=== PATIENT | male | born 1945 | race Caucasian/White ===

== ENCOUNTER 2018-10-19 10:11 | Inpatient (IN) | payer OTHER ==
[~2018-10-19 10:11] MED LIST: HETASTARCH 6% NACL 500 ML BAG; ROCURONIUM 50 MG INJ; ROPIVACAINE 0.2% 20 ML VIAL
[2018-10-19] MEDS ORDERED: ROCURONIUM 50 MG INJ (12:28)
[2018-10-19] MEDS ORDERED: HYDROmorphONE 2 MG/ML SYG (12:28)
[2018-10-19] MEDS ORDERED: CEFAZOLIN 1 GM INJ (12:28)
[2018-10-19] MEDS ORDERED: MIDAZOLAM 1 MG/ML 2 ML INJ (12:28)
[2018-10-19] MEDS ORDERED: ROPIVACAINE 0.5 % 30 ML VIAL (12:28)
[2018-10-19] MEDS ORDERED: PROPOFOL 20 ML (12:28)
[2018-10-19] MEDS ORDERED: LABETALOL HCL 20MG INJ IV (12:30)
[2018-10-19] MEDS ORDERED: ONDANSETRON 4 MG INJ IV ×2 (12:30→13:00)
[2018-10-19] MEDS ORDERED: MEPERIDINE 25 MG INJ IV (12:30)
[2018-10-19] MEDS ORDERED: hydrALAzine 20 MG INJ IV (12:30)
[2018-10-19] MEDS ORDERED: METOCLOPRAMIDE 10 MG INJ IV (12:30)
[2018-10-19] MEDS ORDERED: OXYCODONE/ACETAMINOPHEN (5/325) TAB PO (12:30)
[2018-10-19] MEDS ORDERED: HYDROmorphONE 1 MG/5 ML IV SYRINGE IV ×3 (12:30)
[2018-10-19] MEDS ORDERED: EPHEDrine SULFATE 50 MG/5 ML SYG IV (12:30)
[2018-10-19] MEDS ORDERED: FENTAnyl 50 MCG/ML VIAL IV ×3 (12:30)
[2018-10-19] MEDS ORDERED: DIPHENHYDRAMINE 50 MG INJ IV ×2 (12:30→13:00)
[2018-10-19] MEDS ORDERED: PHENYLephrine (100 MCG/ML) 5ML SYG (12:59)
[2018-10-19] MEDS ORDERED: HYDROCODONE/APAP (10/325) TAB PO ×2 (13:00)
[2018-10-19] MEDS ORDERED: ACETAMINOPHEN 325 MG TAB PO (13:00)
[2018-10-19] MEDS ORDERED: ZOLPIDEM 5 MG TAB PO (13:00)
[2018-10-19] MEDS ORDERED: HYDROmorphONE 0.5 MG/0.5 ML SYG IV (13:00)
[2018-10-19] MEDS ORDERED: HYDROmorphONE 0.2 MG/ML PCA IV (13:00)
[2018-10-19] MEDS ORDERED: BISACODYL 10 MG SUPP PR (13:00)
[2018-10-19] MEDS ORDERED: CYCLOBENZAPRINE 10 MG TAB PO (13:00)
[2018-10-19] MEDS ORDERED: AL HYDROX/MG HYDROX/SIMETH 30 ML CUP PO (13:00)
[2018-10-19] MEDS ORDERED: NALOXONE (0.4 MG/ML) INJ IV (13:00)
[2018-10-19] MEDS ORDERED: ONDANSETRON 4 MG INJ ×2 (13:44→17:32)
[2018-10-19] MEDS ORDERED: METOCLOPRAMIDE 10 MG INJ (13:44)
[2018-10-19] MEDS ORDERED: DEXAMETHASONE 4 MG/ML 1 ML INJ (13:44)
[2018-10-19] MEDS: BUPIVACAINE 0.25%/EPI (MDV) 50 ML VIAL INJ (14:11)
[2018-10-19] MEDS: HEPARIN 1000 UNITS/ML 10 ML INJ (14:12)
[2018-10-19] MEDS: CEFAZOLIN 1 GM INJ (14:14)
[2018-10-19] MEDS: SURGIFOAM POWDER 1 GM KIT (14:15)
[2018-10-19] MEDS: THROMBIN 5000 UNIT VIAL ×2 (14:15→17:02)
[2018-10-19] MEDS: GELATIN SIZE 100 SPONGE ×2 (14:15→17:02)
[2018-10-19] MEDS ORDERED: GELATIN SIZE 100 SPONGE (16:24)
[2018-10-19] MEDS ORDERED: THROMBIN 5000 UNIT VIAL (16:29)
[2018-10-19] MEDS ORDERED: SUGAMMADEX SODIUM 200 MG/2 ML VIAL IV (17:32)
[2018-10-19] MEDS: D5W-0.45 NACL + KCL 20 MEQ 1,000 ML IV (19:05)
[2018-10-19] MEDS: CEFAZOLIN 1 GM/50 ML (PMX) 50 ML IVPB ×2 (20:23→21:00)
[2018-10-19] MEDS: CEPASTAT LOZENGE MT (20:59)
[2018-10-19] MEDS: DOCUSATE SODIUM 100 MG CAP PO (21:01)
[2018-10-20 04:57] LABS: ADD MAN DIFF? NO
[2018-10-20 04:58] LABS: WHITE BLOOD COUNT 12.3 10^3/ul (4.8-10.8)
[2018-10-20 04:58] LABS: BASOPHILS % 0.1 % (0.0-2.0); HEMATOCRIT 28.2 % (42.0-52.0); HEMOGLOBIN 9.6 g/dl (14.0-18.0); LYMPHOCYTES # 0.6 10^3/ul (0.8-2.9); LYMPHOCYTES % 5.2 % (15.0-51.0); MEAN CORPUSCULAR HEMOGLOBIN 29.4 pg (29.0-33.0); MEAN CORPUSCULAR VOLUME 86.5 fl (82.0-101.0); MONOCYTE # 0.9 10^3/ul (0.3-0.9); MONOCYTES % 7.5 % (0.0-11.0); NEUTROPHIL # 10.7 10^3/ul (1.6-7.5); NEUTROPHILS % 86.6 % (39.0-77.0); PLATELET COUNT 181 10^3/UL (140-415); RED BLOOD COUNT 3.26 10^6/ul (4.70-6.10)
[2018-10-20] MEDS: CEFAZOLIN 1 GM/50 ML (PMX) 50 ML IVPB ×3 (05:22→22:39)
[2018-10-20] MEDS: PANTOPRAZOLE 40 MG INJ IV (05:22)
[2018-10-20 05:23] LABS: ANION GAP 5 (5-13); BLOOD UREA NITROGEN 12 mg/dl (7-20); CALCIUM 8.1 mg/dl (8.4-10.2); CARBON DIOXIDE 26 mmol/L (21-31); CHLORIDE 103 mmol/L (97-110); CREATININE 0.93 mg/dl (0.61-1.24); GLUCOSE 177 mg/dl (70-220); MAGNESIUM 1.5 mg/dl (1.7-2.5); POTASSIUM 4.3 mmol/L (3.5-5.1); SODIUM 134 mmol/L (135-144)
[2018-10-20] MEDS ORDERED: CEFAZOLIN 1 GM INJ ×2 (07:02→10:25)
[2018-10-20] MEDS ORDERED: BUPIVACAINE 0.25%/EPI (SDV) 10 ML INJ (07:02)
[2018-10-20] MEDS ORDERED: HEPARIN 1000 UNITS/ML 10 ML INJ (07:03)
[2018-10-20] MEDS ORDERED: NEOSTIGMINE 3 MG/3 ML SYRINGE ×2 (07:16→10:26)
[2018-10-20] MEDS ORDERED: LIDOCAINE 2% (SDV) 5 ML INJ (07:16)
[2018-10-20] MEDS ORDERED: SUCCINYLCHOLINE CHLORIDE 100 MG/5 ML SYG IV (07:16)
[2018-10-20] MEDS ORDERED: ROCURONIUM 50 MG INJ ×2 (07:16→08:10)
[2018-10-20] MEDS ORDERED: PROPOFOL 20 ML (07:16)
[2018-10-20] MEDS ORDERED: GLYCOPYRROLATE 0.4 MG INJ ×2 (07:16→10:26)
[2018-10-20] MEDS ORDERED: MEPERIDINE 100 MG INJ (07:17)
[2018-10-20] MEDS: THROMBIN 5000 UNIT VIAL (08:41)
[2018-10-20] MEDS: BUPIVACAINE 0.25%/EPI (MDV) 50 ML VIAL INJ (08:41)
[2018-10-20] MEDS: POLYMYXIN/BACITRACIN 1L IRRIG (08:43)
[2018-10-20] MEDS: SURGIFOAM POWDER 1 GM KIT (08:43)
[2018-10-20] MEDS ORDERED: EPHEDrine SULFATE 50 MG/5 ML SYG (10:25)
[2018-10-20] MEDS ORDERED: ONDANSETRON 4 MG INJ (10:49)
[2018-10-20] MEDS ORDERED: hydrALAzine 20 MG INJ IV (11:00)
[2018-10-20] MEDS ORDERED: HYDROmorphONE 1 MG/5 ML IV SYRINGE IV ×3 (11:00)
[2018-10-20] MEDS ORDERED: ONDANSETRON 4 MG INJ IV ×2 (11:00→12:30)
[2018-10-20] MEDS ORDERED: MIDAZOLAM 1 MG/ML 2 ML INJ IV (11:00)
[2018-10-20] MEDS ORDERED: FENTAnyl 50 MCG/ML VIAL IV ×3 (11:00)
[2018-10-20] MEDS ORDERED: OXYCODONE/ACETAMINOPHEN (5/325) TAB PO ×2 (11:00)
[2018-10-20] MEDS ORDERED: MEPERIDINE 25 MG INJ IV (11:00)
[2018-10-20] MEDS ORDERED: METOCLOPRAMIDE 10 MG INJ IV (11:00)
[2018-10-20] MEDS ORDERED: EPHEDrine SULFATE 50 MG/5 ML SYG IV (11:00)
[2018-10-20] MEDS ORDERED: DIPHENHYDRAMINE 50 MG INJ IV ×2 (11:00→12:30)
[2018-10-20] MEDS ORDERED: LABETALOL HCL 20MG INJ IV (11:00)
[2018-10-20] MEDS: FENTAnyl 50 MCG/ML VIAL (11:51)
[2018-10-20] MEDS: BUPIVACAINE 0.25% (MPF) 30 ML INJ (11:52)
[2018-10-20] MEDS ORDERED: CEPASTAT LOZENGE MT (12:30)
[2018-10-20] MEDS ORDERED: ZOLPIDEM 5 MG TAB PO (12:30)
[2018-10-20] MEDS ORDERED: HYDROmorphONE 0.5 MG/0.5 ML SYG IV (12:30)
[2018-10-20] MEDS ORDERED: CYCLOBENZAPRINE 10 MG TAB PO (12:30)
[2018-10-20] MEDS ORDERED: ACETAMINOPHEN 325 MG TAB PO (12:30)
[2018-10-20] MEDS ORDERED: BISACODYL 10 MG SUPP PR (12:30)
[2018-10-20] MEDS ORDERED: NALOXONE (0.4 MG/ML) INJ IV (12:30)
[2018-10-20] MEDS ORDERED: CEFAZOLIN 1 GM/50 ML (PMX) 50 ML IVPB (13:00)
[2018-10-20] MEDS: HYDROmorphONE 0.2 MG/ML PCA IV (13:27)
[2018-10-20] MEDS: D5W-0.45 NACL + KCL 20 MEQ 1,000 ML IV ×2 (14:33→22:39)
[2018-10-20] MEDS: DOCUSATE SODIUM 100 MG CAP PO (20:42)
[2018-10-21 05:07] LABS: ADD MAN DIFF? NO
[2018-10-21 05:14] LABS: BASOPHILS % 0.1 % (0.0-2.0); HEMATOCRIT 25.9 % (42.0-52.0); HEMOGLOBIN 8.7 g/dl (14.0-18.0); LYMPHOCYTES # 0.9 10^3/ul (0.8-2.9); LYMPHOCYTES % 7.7 % (15.0-51.0); MEAN CORPUSCULAR HEMOGLOBIN 29.8 pg (29.0-33.0); MEAN CORPUSCULAR HGB CONC 33.6 g/dl (32.0-37.0); MEAN CORPUSCULAR VOLUME 88.7 fl (82.0-101.0); MEAN PLATELET VOLUME 11.8 fl (7.4-10.4); MONOCYTE # 0.9 10^3/ul (0.3-0.9); MONOCYTES % 7.1 % (0.0-11.0); NEUTROPHIL # 10.3 10^3/ul (1.6-7.5); NEUTROPHILS % 84.7 % (39.0-77.0); PLATELET COUNT 148 10^3/UL (140-415); RED BLOOD COUNT 2.92 10^6/ul (4.70-6.10); RED CELL DISTRIBUTION WIDTH 13.2 % (11.5-14.5)
[2018-10-21 05:14] LABS: WHITE BLOOD COUNT 12.2 10^3/ul (4.8-10.8)
[2018-10-21 05:50] LABS: BLOOD UREA NITROGEN 11 mg/dl (7-20); CALCIUM 7.7 mg/dl (8.4-10.2); CHLORIDE 99 mmol/L (97-110); CREATININE 0.92 mg/dl (0.61-1.24); GLUCOSE 131 mg/dl (70-220); MAGNESIUM 1.4 mg/dl (1.7-2.5); POTASSIUM 4.1 mmol/L (3.5-5.1)
[2018-10-21 06:18] LABS: CARBON DIOXIDE 27 mmol/L (21-31); SODIUM 133 mmol/L (135-144)
[2018-10-21] MEDS: CEFAZOLIN 1 GM/50 ML (PMX) 50 ML IVPB (06:23)
[2018-10-21] MEDS: PANTOPRAZOLE 40 MG INJ IV (06:23)
[2018-10-21 06:34] LABS: ANION GAP 7 (5-13)
[2018-10-21] MEDS: HYDROmorphONE 0.2 MG/ML PCA IV (07:50)
[2018-10-21] MEDS: D5W-0.45 NACL + KCL 20 MEQ 1,000 ML IV ×2 (09:04→18:28)
[2018-10-21] MEDS: DOCUSATE SODIUM 100 MG CAP PO ×2 (09:04→21:04)
[2018-10-21] MEDS: AL HYDROX/MG HYDROX/SIMETH 30 ML CUP PO (11:32)
[2018-10-21] MEDS: MAGNESIUM SULFATE 4 GM/100 ML 100 ML IVPB (12:37)
[2018-10-22] MEDS: D5W-0.45 NACL + KCL 20 MEQ 1,000 ML IV (04:22)
[2018-10-22 05:40] LABS: ADD MAN DIFF? NO
[2018-10-22 05:47] LABS: HEMATOCRIT 24.6 % (42.0-52.0); HEMOGLOBIN 8.3 g/dl (14.0-18.0); LYMPHOCYTES # 0.8 10^3/ul (0.8-2.9); LYMPHOCYTES % 6.8 % (15.0-51.0); MEAN CORPUSCULAR HGB CONC 33.7 g/dl (32.0-37.0); MEAN CORPUSCULAR VOLUME 88.8 fl (82.0-101.0); MEAN PLATELET VOLUME 11.9 fl (7.4-10.4); MONOCYTE # 0.7 10^3/ul (0.3-0.9); MONOCYTES % 6.5 % (0.0-11.0); NEUTROPHIL # 9.5 10^3/ul (1.6-7.5); NEUTROPHILS % 86.1 % (39.0-77.0); PLATELET COUNT 124 10^3/UL (140-415); RED BLOOD COUNT 2.77 10^6/ul (4.70-6.10); RED CELL DISTRIBUTION WIDTH 12.7 % (11.5-14.5)
[2018-10-22 06:10] LABS: ANION GAP 5 (5-13); BLOOD UREA NITROGEN 9 mg/dl (7-20); CALCIUM 7.4 mg/dl (8.4-10.2); CARBON DIOXIDE 26 mmol/L (21-31); CHLORIDE 96 mmol/L (97-110); CREATININE 0.79 mg/dl (0.61-1.24); GLUCOSE 116 mg/dl (70-220); MAGNESIUM 1.9 mg/dl (1.7-2.5); SODIUM 127 mmol/L (135-144)
[2018-10-22] MEDS: PANTOPRAZOLE 40 MG INJ IV (06:39)
[2018-10-22] MEDS: DOCUSATE SODIUM 100 MG CAP PO ×2 (09:00→21:00)
[2018-10-22] MEDS ORDERED: HYDROCODONE/APAP (5/325) TAB PO (09:30)
[2018-10-22] MEDS ORDERED: HYDROCODONE/APAP (10/325) TAB PO ×4 (09:30→14:00)
[2018-10-22] MEDS: HYDROCODONE/APAP (10/325) TAB PO (09:30)
[2018-10-23] MEDS: PANTOPRAZOLE 40 MG INJ IV (05:05)
[2018-10-23 05:25] LABS: ADD MAN DIFF? NO
[2018-10-23 05:32] LABS: WHITE BLOOD COUNT 7.2 10^3/ul (4.8-10.8)
[2018-10-23 05:32] LABS: BASOPHILS % 0.1 % (0.0-2.0); EOSINOPHILS % 0.6 % (0.0-7.0); HEMATOCRIT 21.5 % (42.0-52.0); HEMOGLOBIN 7.3 g/dl (14.0-18.0); LYMPHOCYTES # 0.8 10^3/ul (0.8-2.9); LYMPHOCYTES % 11.3 % (15.0-51.0); MEAN CORPUSCULAR HEMOGLOBIN 29.2 pg (29.0-33.0); MEAN PLATELET VOLUME 12.1 fl (7.4-10.4); MONOCYTE # 0.6 10^3/ul (0.3-0.9); MONOCYTES % 8.3 % (0.0-11.0); NEUTROPHIL # 5.7 10^3/ul (1.6-7.5); NEUTROPHILS % 79.1 % (39.0-77.0); PLATELET COUNT 117 10^3/UL (140-415); RED CELL DISTRIBUTION WIDTH 12.2 % (11.5-14.5)
[2018-10-23 06:06] LABS: ANION GAP 8 (5-13); BLOOD UREA NITROGEN 12 mg/dl (7-20); CALCIUM 7.4 mg/dl (8.4-10.2); CARBON DIOXIDE 26 mmol/L (21-31); CHLORIDE 95 mmol/L (97-110); CREATININE 0.78 mg/dl (0.61-1.24); GLUCOSE 100 mg/dl (70-220); MAGNESIUM 1.8 mg/dl (1.7-2.5); POTASSIUM 4.2 mmol/L (3.5-5.1); SODIUM 129 mmol/L (135-144)
[2018-10-23] MEDS: DOCUSATE SODIUM 100 MG CAP PO ×2 (09:00→21:00)
[2018-10-23 09:51] LABS: HEMATOCRIT 22.1 % (42.0-52.0); HEMOGLOBIN 7.5 g/dl (14.0-18.0)
[2018-10-23] MEDS: SOD CHLORIDE 0.9% 100 ML (12:32)
[2018-10-23] MEDS: IOHEXOL 300MG/ML 150 ML BTL (12:33)
[2018-10-23 13:08] LABS: IMMEDIATE SPIN CROSSMATCH 1 1
[2018-10-23 19:58] LABS: HEMATOCRIT 24.9 % (42.0-52.0); HEMOGLOBIN 8.6 g/dl (14.0-18.0)
[2018-10-24 05:45] LABS: WHITE BLOOD COUNT 5.5 10^3/ul (4.8-10.8)
[2018-10-24 05:45] LABS: ADD MAN DIFF? NO; BASOPHILS % 0.4 % (0.0-2.0); EOSINOPHILS # 0.1 10^3/ul (0.0-0.5); EOSINOPHILS % 2.2 % (0.0-7.0); HEMATOCRIT 24.5 % (42.0-52.0); HEMOGLOBIN 8.5 g/dl (14.0-18.0); LYMPHOCYTES # 0.6 10^3/ul (0.8-2.9); LYMPHOCYTES % 11.2 % (15.0-51.0); MEAN CORPUSCULAR HGB CONC 34.7 g/dl (32.0-37.0); MEAN CORPUSCULAR VOLUME 86.6 fl (82.0-101.0); MEAN PLATELET VOLUME 12.2 fl (7.4-10.4); MONOCYTE # 0.5 10^3/ul (0.3-0.9); MONOCYTES % 9.9 % (0.0-11.0); NEUTROPHIL # 4.1 10^3/ul (1.6-7.5); NEUTROPHILS % 75.8 % (39.0-77.0); PLATELET COUNT 142 10^3/UL (140-415); RED BLOOD COUNT 2.83 10^6/ul (4.70-6.10); RED CELL DISTRIBUTION WIDTH 12.2 % (11.5-14.5)
[2018-10-24] MEDS: PANTOPRAZOLE 40 MG INJ IV (06:19)
[2018-10-24 06:57] LABS: ANION GAP 8 (5-13); BLOOD UREA NITROGEN 13 mg/dl (7-20); CALCIUM 7.3 mg/dl (8.4-10.2); CARBON DIOXIDE 24 mmol/L (21-31); CHLORIDE 96 mmol/L (97-110); CREATININE 0.68 mg/dl (0.61-1.24); GLUCOSE 99 mg/dl (70-220); POTASSIUM 3.7 mmol/L (3.5-5.1); SODIUM 128 mmol/L (135-144)
[2018-10-24] MEDS: DOCUSATE SODIUM 100 MG CAP PO ×2 (09:01→21:00)
[2018-10-24] MEDS: LACTATED RINGER'S 500 ML IV (11:08)
[2018-10-24] MEDS: DOXAZOSIN 1 MG TAB PO (12:49)
[2018-10-24] MEDS: DOXAZOSIN 2 MG TAB PO (21:54)
[2018-10-25 05:10] LABS: ADD MAN DIFF? NO
[2018-10-25 05:22] LABS: WHITE BLOOD COUNT 5.3 10^3/ul (4.8-10.8)
[2018-10-25 05:22] LABS: BASOPHILS % 0.4 % (0.0-2.0); EOSINOPHILS # 0.1 10^3/ul (0.0-0.5); EOSINOPHILS % 2.7 % (0.0-7.0); HEMATOCRIT 24.2 % (42.0-52.0); HEMOGLOBIN 8.5 g/dl (14.0-18.0); LYMPHOCYTES # 0.8 10^3/ul (0.8-2.9); LYMPHOCYTES % 15.3 % (15.0-51.0); MEAN CORPUSCULAR HGB CONC 35.1 g/dl (32.0-37.0); MEAN CORPUSCULAR VOLUME 85.5 fl (82.0-101.0); MEAN PLATELET VOLUME 11.9 fl (7.4-10.4); MONOCYTE # 0.5 10^3/ul (0.3-0.9); MONOCYTES % 10.2 % (0.0-11.0); NEUTROPHIL # 3.7 10^3/ul (1.6-7.5); NEUTROPHILS % 70.8 % (39.0-77.0); PLATELET COUNT 167 10^3/UL (140-415); RED BLOOD COUNT 2.83 10^6/ul (4.70-6.10); RED CELL DISTRIBUTION WIDTH 12.5 % (11.5-14.5)
[2018-10-25 05:48] LABS: MAGNESIUM 1.9 mg/dl (1.7-2.5)
[2018-10-25] MEDS: PANTOPRAZOLE 40 MG INJ IV ×2 (06:04→22:27)
[2018-10-25 06:23] LABS: ANION GAP 8 (5-13); BLOOD UREA NITROGEN 9 mg/dl (7-20); CALCIUM 7.4 mg/dl (8.4-10.2); CARBON DIOXIDE 25 mmol/L (21-31); CHLORIDE 98 mmol/L (97-110); CREATININE 0.64 mg/dl (0.61-1.24); GLUCOSE 99 mg/dl (70-220); POTASSIUM 3.9 mmol/L (3.5-5.1); SODIUM 131 mmol/L (135-144)
[2018-10-25] MEDS: DOCUSATE SODIUM 100 MG CAP PO ×2 (09:00→21:00)
[2018-10-25] MEDS: DOXAZOSIN 2 MG TAB PO (22:32)
[2018-10-26 05:33] LABS: ADD MAN DIFF? NO
[2018-10-26 05:43] LABS: WHITE BLOOD COUNT 6.9 10^3/ul (4.8-10.8)
[2018-10-26 05:43] LABS: BASOPHILS % 0.6 % (0.0-2.0); EOSINOPHILS # 0.2 10^3/ul (0.0-0.5); EOSINOPHILS % 2.9 % (0.0-7.0); HEMATOCRIT 25.5 % (42.0-52.0); HEMOGLOBIN 8.8 g/dl (14.0-18.0); LYMPHOCYTES % 14.9 % (15.0-51.0); MEAN CORPUSCULAR HEMOGLOBIN 29.9 pg (29.0-33.0); MEAN CORPUSCULAR HGB CONC 34.5 g/dl (32.0-37.0); MEAN CORPUSCULAR VOLUME 86.7 fl (82.0-101.0); MEAN PLATELET VOLUME 11.6 fl (7.4-10.4); MONOCYTE # 0.7 10^3/ul (0.3-0.9); MONOCYTES % 9.4 % (0.0-11.0); NEUTROPHIL # 4.9 10^3/ul (1.6-7.5); NEUTROPHILS % 70.6 % (39.0-77.0); PLATELET COUNT 203 10^3/UL (140-415); RED BLOOD COUNT 2.94 10^6/ul (4.70-6.10); RED CELL DISTRIBUTION WIDTH 12.6 % (11.5-14.5)
[2018-10-26 06:33] LABS: ANION GAP 6 (5-13); BLOOD UREA NITROGEN 9 mg/dl (7-20); CALCIUM 7.8 mg/dl (8.4-10.2); CARBON DIOXIDE 26 mmol/L (21-31); CHLORIDE 96 mmol/L (97-110); CREATININE 0.66 mg/dl (0.61-1.24); GLUCOSE 99 mg/dl (70-220); POTASSIUM 3.8 mmol/L (3.5-5.1); SODIUM 128 mmol/L (135-144)
[2018-10-26] MEDS: DOCUSATE SODIUM 100 MG CAP PO (09:00)
[2018-10-26] MEDS ORDERED: VITAMIN A & D 5 GM OINT PACKET TOP (09:59)
== END 2018-10-26 15:14 | disposition home health service (06) | DRG 454 ==
LOC: MS1 10-20 12:08 → REC 10:11 → ICU 18:05
PROC: 0SG10A0 Fusion of 2 or more Lumbar Vertebral Joints with Interbody Fusion Device, Anterior Approach, Anterior Column, Open Approach (ICD-10-PCS; principal; 2018-10-19 12:00)
PROC: 0SG30A0 Fusion of Lumbosacral Joint with Interbody Fusion Device, Anterior Approach, Anterior Column, Open Approach (ICD-10-PCS; 2018-10-19 12:00)
PROC: 07DR3ZZ Extraction of Iliac Bone Marrow, Percutaneous Approach (ICD-10-PCS; 2018-10-19 12:00)
PROC: 4A11X4G Monitoring of Peripheral Nervous Electrical Activity, Intraoperative, External Approach (ICD-10-PCS; 2018-10-19 12:00)
PROC: 0SG10K1 Fusion of 2 or more Lumbar Vertebral Joints with Nonautologous Tissue Substitute, Posterior Approach, Posterior Column, Open Approach (ICD-10-PCS; 2018-10-19 12:43)
PROC: 0SG30K1 Fusion of Lumbosacral Joint with Nonautologous Tissue Substitute, Posterior Approach, Posterior Column, Open Approach (ICD-10-PCS; 2018-10-19 12:43)
PROC: 4A11X4G Monitoring of Peripheral Nervous Electrical Activity, Intraoperative, External Approach (ICD-10-PCS; 2018-10-19 12:43)
PROC: 03HC33Z Insertion of Infusion Device into Left Radial Artery, Percutaneous Approach (ICD-10-PCS; 2018-10-19 12:43)
PROC: 30233N1 Transfusion of Nonautologous Red Blood Cells into Peripheral Vein, Percutaneous Approach (ICD-10-PCS; 2018-10-19 12:43)
DX: M41.56 Other secondary scoliosis, lumbar region (principal); D62 Acute posthemorrhagic anemia; E87.1 Hypo-osmolality and hyponatremia; M43.16 Spondylolisthesis, lumbar region; M48.062 Spinal stenosis, lumbar region with neurogenic claudication; I10 Essential (primary) hypertension
CPT/HCPCS: 36430; 72110; 72131; 72148; 74178; 80048; 83735; 85014; 85018; 85025; 86850; 86900; 86901; 86920; 86999; 87081; 88304; 97110; 97116; 97161; 97530

== ENCOUNTER 2018-10-29 11:38 | Emergency (ER) | payer OTHER | END 2018-10-29 14:36 | disposition home or self-care (01) | LOC: FTE 11:38 | DX: Z46.6 Encounter for fitting and adjustment of urinary device (principal) | CPT/HCPCS: 99283 ==